=== PATIENT | female | born 1970 | race Asian ===

== ENCOUNTER 2017-03-09 15:18 | Emergency (ER) | payer OTHER ==
--- NOTE | 2017-03-09 15:21 | PDOC ---
History of Present Illness - General Chief Complaint: Pain, Acute Stated Complaint: RIGHT ARM/SHL/NECK PAIN Time Seen by Provider: 03/09/17 15:20 History Source: Patient Exam Limitations: No Limitations - History of Present Illness Initial Comments: CHIEF COMPLAINT: Right shoulder and right arm pain for 5 years, worse since last night HISTORY OF PRESENT ILLNESS: This is a 46-year-old female with a history of 5 years of chronic radicular pain down the right arm. 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 She gets severe cramping in her fingers every night in the right hand. It gets better in the daytime. She wears a brace on her right wrist at night to help prevent the cramping. The patient was having these typical symptoms until last night when she awoke with pain in the right lateral neck radiating to the right shoulder and down the right arm. She states the pain is worse with turning the head, or to touch of the right trapezius region. She continues to have sensitivity and cramping in her hand, similar to what she's had in the past. There is no history of trauma. There is no history of fever. There is no loss of strength in the right arm, but strength is limited due to the pain. REVIEW OF SYSTEMS: GENERAL/CONSTITUTIONAL: No fever or chills. No weakness. No weight change. HEAD, EYES, EARS, NOSE AND THROAT: No change in vision. No ear pain or discharge. No sore throat. CARDIOVASCULAR: No chest pain or shortness of breath. RESPIRATORY: No cough, wheezing, or hemoptysis. GASTROINTESTINAL: No nausea, vomiting, diarrhea or constipation. No rectal bleeding. GENITOURINARY: No dysuria, frequency, or change in urination. MUSCULOSKELETAL: As it of right-sided neck pain in the trapezius region. Positive pain radiating down the right arm. Positive cramping in the right hand , chronic. SKIN AND BREASTS: No rash or easy bruising. NEUROLOGIC: No headache, vertigo, loss of consciousness, or loss of sensation. PSYCHIATRIC: No depression or anxiety. ENDOCRINE: No increased thirst. No abnormal weight change. HEMATOLOGIC/LYMPHATIC: No anemia, easy bleeding, or history of blood clots. ALLERGIC/IMMUNOLOGIC: No hives or skin allergy. No latex allergy. Past History - Past Medical History Allergies/Adverse Reactions: Allergies Allergy/AdvReac Type Severity Reaction Status Date / Time No Known Allergies Allergy Verified 03/09/17 15:19 Home Medications: Ambulatory Orders Nabumetone [Relafen -] 500 mg PO BID PRN #20 tablet 03/09/17 Other medical history: peripartum hemorrhage compl by massive transfusion and right arm nerve injr *Physical Exam - Physical Exam Comments: 03/09/17 16:22 GENERAL: The patient is awake, alert, and fully oriented, in no acute distress. HEAD: Normal with no signs of trauma. EYES: Pupils equal, round and reactive to light, extraocular movements intact, sclera anicteric, conjunctiva clear. ENT: Ears normal, nares patent, oropharynx clear without exudates. Moist mucous membranes. NECK: No cervical spine point tenderness. Positive right trapezius muscle spasm and tenderness. Positive increased pain with rotation and flexion of the neck. Positive increased neck pain with elevation of the right arm and reaching across to the left shoulder. LUNGS: Breath sounds equal, clear to auscultation bilaterally. No wheezes, and no crackles. HEART: Regular rate and rhythm, normal S1 and S2 without murmur, rub or gallop. ABDOMEN: Soft, nontender, normoactive bowel sounds. No guarding, no rebound. No masses. EXTREMITIES: Normal range of motion, no edema. No clubbing or cyanosis. No cords, erythema, or tenderness. Normal range of motion in the right hand. NEUROLOGICAL: Cranial nerves grossly intact. Normal speech, normal gait. Right arm with normal sensation. Strength appears good, but is somewhat limited due to pain in the right shoulder and neck region when testing strength. PSYCH: Normal mood, normal affect. SKIN: Warm, Dry, normal turgor, no rashes or lesions noted. 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 Patient has frequent daily nocturnal cramping in her right hand. Today she awoke with right neck trapezius muscle spasm and pain radiating down the right arm. On examination she has clear trapezius muscle spasm and increased pain with range of motion of the neck. Motor and sensory testing of the right arm appears intact. Findings are consistent with torticollis in the right trapezius muscle with spasm. Patient prescribed nabumetone and advised to do physical therapy exercises. Referral to neurology has been given. *DC/Admit/Observation/Transfer Diagnosis at time of Disposition: Trapezius muscle spasm - Discharge Dispostion Disposition: HOME Condition at time of disposition: Stable Admit: No - Prescriptions Prescriptions: Nabumetone [Relafen -] 500 mg PO BID PRN #20 tablet PRN Reason: shoulder and neck pain - Referrals Referrals: Lucía Molina MD [Non Staff, Medical] - 2 Days - Patient Instructions Printed Discharge Instructions: DI for Cervical Radiculopathy Additional Instructions: Today you were evaluated for right-sided neck pain radiating down the right arm. Your diagnosis is cervical radiculopathy. This basically means muscle spasm in the neck with a pinched nerve causing pain down the arm. Take nabumetone 500 mg twice a day with food to help relieve the pain. Exercise by doing the physical therapy exercises that you were shown in the emergency room. Follow-up with Dr. Lucía Molina neurologist, by calling her office on Saturday to schedule an appointment. Return to the emergency room for any severe or progressive symptoms.
[2017-03-09 15:22] VITALS: BP 100/68; PULSE 88; TEMP 98.8; BMI 18.6
== END 2017-03-09 16:19 | disposition home or self-care (01) ==
LOC: FER 15:18
DX: M54.12 Radiculopathy, cervical region (principal); M79.601 Pain in right arm
CPT/HCPCS: 99282-25

== ENCOUNTER 2017-06-23 17:08 | Emergency (ER) | payer OTHER ==
[2017-06-23 17:12] VITALS: TEMP 97.6; BMI 20.3
[2017-06-23] MEDS ORDERED: ACETAMINOPHEN 325 MG TABLET (FP) PO ONE (17:29)
[2017-06-23] MEDS ORDERED: SODIUM CHLORIDE 1,000 ML IV STA (17:29)
[2017-06-23] MEDS ORDERED: ACETAMINOPHEN 325 MG TABLET (FP) ONE (17:37)
--- NOTE | 2017-06-23 17:42 | PDOC ---
History of Present Illness - General History Source: Patient Exam Limitations: No Limitations <Horacio Qiu - Last Filed: 06/23/17 19:04> - General History Source: Patient, Family Exam Limitations: No Limitations - History of Present Illness Initial Comments: 06/23/17 18:39 The patient is a 46 year old female patient, with significant past medical history of Carpal Tunnel syndrome, who presents to the emergency room via EMS, accompanied by and friend, complaining of two syncopal episodes just prior to arrival. The patient reports she was at a birthday republic[employer] when she began experiencing abdominal cramps and had to sit down. Upon sitting down the patient reportedly syncopized and convulsed for approx. 20-30 seconds per the patient's friend. The patient reports then going to the restroom and experiencing nonbloody diarrhea. The patient reports a second syncopal episode after using the restroom where she states she felt weak and had to sit down in a chair. The patient denies hitting her head. She denies recent fevers or chills. She denies recent nausea or vomit. She denies recent dysuria, frequency, urgency or hematuria. She denies recent chest pain or shortness of breath. Allergies: NKA Past surgical history: Hysterectomy. Primary Care Physician: Dr. Mcdonald <Maximino Bobby - Last Filed: 06/23/17 19:26> - General Chief Complaint: Syncope/Near Syncope Stated Complaint: SYNCOPE,DIARRHEA S/P ABDOMINAL PAIN Time Seen by Provider: 06/23/17 17:23 Past History - Past Medical History GI Disorders: Yes (HEPATITIS B) Other medical history: FAINTING,CARPAL TUNNEL SYNDROME, - Surgical History Abdominal Surgery: Yes - Suicide/Smoking/Psychosocial Hx Smoking History: Never smoked Have you smoked in the past 12 months: No Information on smoking cessation initiated: No Hx Alcohol Use: No Drug/Substance Use Hx: No Substance Use Type: None <Horacio Qiu - Last Filed: 06/23/17 19:04> <Maximino Bobby - Last Filed: 06/23/17 19:26> - Past Medical History Allergies/Adverse Reactions: Allergies Allergy/AdvReac Type Severity Reaction Status Date / Time No Known Allergies Allergy Verified 06/23/17 17:09 Home Medications: Ambulatory Orders NK [No Known Home Medication] 06/23/17 Review of Systems - Review of Systems Comments:: 06/23/17 18:41 GENERAL/CONSTITUTIONAL: No fever or chills. HEAD, EYES, EARS, NOSE AND THROAT: No change in vision. No ear pain or discharge. No sore throat. CARDIOVASCULAR: No chest pain or shortness of breath. RESPIRATORY: No cough, wheezing, or hemoptysis. GASTROINTESTINAL: +Diarrhea. +Abdominal cramps. No nausea, vomiting. GENITOURINARY: No dysuria, frequency, or change in urination. MUSCULOSKELETAL: No joint or muscle swelling or pain. No neck or back pain. SKIN: No rash NEUROLOGIC: +Syncopal episode 2x. No change in strength/sensation. ENDOCRINE: No increased thirst. No abnormal weight change. HEMATOLOGIC/LYMPHATIC: No anemia, easy bleeding, or history of blood clots. ALLERGIC/IMMUNOLOGIC: No hives or skin allergy. <Maximino Bobby - Last Filed: 06/23/17 19:26> *Physical Exam - Vital Signs Last Vital Signs Temp Pulse Resp BP Pulse Ox 97.6 F 74 16 90/53 97 06/23/17 17:09 06/23/17 17:09 06/23/17 17:09 06/23/17 17:39 06/23/17 17:09 <Horacio Qiu - Last Filed: 06/23/17 19:04> - Vital Signs Last Vital Signs Temp Pulse Resp BP Pulse Ox 97.6 F 78 16 88/52 98 06/23/17 17:09 06/23/17 17:46 06/23/17 17:46 06/23/17 17:46 06/23/17 17:46 - Physical Exam Comments: 06/23/17 18:42 GENERAL: Awake, alert, and fully oriented, in no acute distress HEAD: No signs of trauma EYES: PERRLA, EOMI, sclera anicteric, conjunctiva clear ENT: Auricles normal inspection, hearing grossly normal, nares patent, oropharynx clear without exudates. Moist mucosa NECK: Normal ROM, supple, no lymphadenopathy, JVD, or masses LUNGS: Breath sounds equal, clear to auscultation bilaterally. No wheezes, and no crackles HEART: Regular rate and rhythm, normal S1 and S2, no murmurs, rubs or gallops ABDOMEN: Soft, nontender, normoactive bowel sounds. No guarding, no rebound. No masses EXTREMITIES: Normal range of motion, no edema. No clubbing or cyanosis. No cords, erythema, or tenderness NEUROLOGICAL: +5/5 strength upper and lower extremities. +Sensation intact throughout. No pronator drift. Finger to nose normal. Cranial nerves II through XII grossly intact. Normal speech, normal gait SKIN: Warm, Dry, normal turgor, no rashes or lesions noted. <Maximino Bobby - Last Filed: 06/23/17 19:26> Heart Score/ECG Review #1 ECG reviewed & interpreted by me at: 17:45 06/23/17 18:22 NSR 73, no std/arnoldo, normal axis, normal intervals, QTC 445 msec, no HOCM, no WPW , no brugada <Horacio Qiu - Last Filed: 06/23/17 19:04> ED Treatment Course - LABORATORY CBC & Chemistry Diagram: 06/23/17 17:30 06/23/17 17:30 - Medications Given in the ED: ED Medications Discontinued Medications Generic Name Dose Route Start Last Admin Trade Name Freq PRN Reason Stop Dose Admin Acetaminophen 650 mg 06/23/17 17:29 06/23/17 17:39 Tylenol - PO 06/23/17 17:30 Not Given ONCE ONE <Horacio Qiu - Last Filed: 06/23/17 19:04> - LABORATORY CBC & Chemistry Diagram: 06/23/17 17:30 06/23/17 17:30 - ADDITIONAL ORDERS Additional order review: Laboratory Results 06/23/17 06/23/17 17:30 17:30 Sodium 136 Potassium 3.3 L Chloride 103 Carbon Dioxide 27 Anion Gap 6 L BUN 21 H Creatinine 0.9 Creat Clearance w eGFR > 60 Random Glucose 105 Calcium 8.6 Magnesium 2.1 Total Bilirubin 0.7 AST 21 ALT 15 Alkaline Phosphatase 54 Troponin I < 0.03 L Total Protein 6.5 Albumin 4.2 06/23/17 17:30 RBC 4.03 MCV 90.9 MCHC 35.0 RDW 11.8 MPV 7.9 Neutrophils % 72.7 Lymphocytes % 20.6 Monocytes % 4.6 Eosinophils % 1.8 Basophils % 0.3 - Medications Given in the ED: ED Medications Discontinued Medications Generic Name Dose Route Start Last Admin Trade Name Freq PRN Reason Stop Dose Admin Acetaminophen 650 mg 06/23/17 17:29 06/23/17 17:39 Tylenol - PO 06/23/17 17:30 Not Given ONCE ONE Sodium Chloride 1,000 mls @ 1,000 mls/hr 06/23/17 17:29 06/23/17 17:39 Normal Saline - IV 06/23/17 18:28 1,000 mls/hr ASDIR STA Administration <Maximino Bobby - Last Filed: 06/23/17 19:26> Medical Decision Making - Medical Decision Making 06/23/17 18:20 A portion of this note was documented by scribe services under my direction. I have reviewed the details of the note, within reason, and agree with the documentation with the following case summary and management plan written by me. Patient treated in the ED. Nursing notes are reviewed and incorporated into the medical decision-making. Vital signs reviewed. Vital Signs Temp Pulse Resp BP Pulse Ox 97.6 F 78 16 88/52 98 06/23/17 17:09 06/23/17 17:46 06/23/17 17:46 06/23/17 17:46 06/23/17 17:46 46-year-old female with past medical history right hand carpal tunnel, hysterectomy resents to the emerrgency department for syncope 2. Patient reports that she was in her usual state of health. She was at a birthday republic[employer] when she felt severe abdominal cramping. Patient started not to feel well. Cramping and caused her to feel lightheaded and the patient syncopized which was witnessed. No head trauma. There is some questionable shaking but the patient returned to baseline immediately. No tongue biting or foaming of the mouth. Patient again felt unwell and had a second episode with the abdominal cramping and patient proceeded to have diarrhea. Patient subsequently woke up and returned back to baseline. No chest pain or short of breath. I suspect the symptoms were likely secondary to vasovagal syncope. EKG is reassuring. I suspect the cramping and caused her to faint. We'll obtain labs and give IV fluids. We'll observe the patient and if the symptoms are resolved and workup is unremarkable, we'll have the patient discharged. 06/23/17 19:05 CBC, BMP 06/23/17 17:30 06/23/17 17:30 CMP Sodium 136 mmol/L (136-145) 06/23/17 17:30 Potassium 3.3 mmol/L (3.5-5.1) L 06/23/17 17:30 Chloride 103 mmol/L (98-107) 06/23/17 17:30 Carbon Dioxide 27 mmol/L (22-28) 06/23/17 17:30 Anion Gap 6 (8-16) L 06/23/17 17:30 BUN 21 mg/dl (7-18) H 06/23/17 17:30 Creatinine 0.9 mg/dl (0.6-1.3) 06/23/17 17:30 Creat Clearance w eGFR > 60 (>60) 06/23/17 17:30 Random Glucose 105 mg/dl (74-106) 06/23/17 17:30 Calcium 8.6 mg/dl (8.4-10.2) 06/23/17 17:30 Magnesium 2.1 mg/dL (1.8-2.4) 06/23/17 17:30 Total Bilirubin 0.7 mg/dl (0.2-1.0) 06/23/17 17:30 AST 21 U/L (10-42) 06/23/17 17:30 ALT 15 U/L (10-40) 06/23/17 17:30 Alkaline Phosphatase 54 U/L (32-92) 06/23/17 17:30 Troponin I < 0.03 ng/ml (0.03-0.50) L 06/23/17 17:30 Total Protein 6.5 g/dl (6.4-8.3) 06/23/17 17:30 Albumin 4.2 g/dl (3.5-5.0) 06/23/17 17:30 Pt reports feeling well. Pt ambulatory and wishes to go home. Return precautions given. I discussed the physical exam findings, ancillary test results and final diagnoses with the patient. I answered all of the patient's questions. The patient was satisfied with the care received and felt comfortable with the discharge plan and treatment plan. The patient will call their primary care physician within 24 hours to arrange follow-up and will return to the Emergency Department with any new, persistant or worsening symptoms. <Horacio Qiu - Last Filed: 06/23/17 19:04> *DC/Admit/Observation/Transfer - Discharge Dispostion Admit: No <Horacio Qiu - Last Filed: 06/23/17 19:04> - Attestations Scribe Attestion: 06/23/17 18:43 Documentation prepared by Maximino Bobby, acting as medical malpractice paralegal for Horacio Qiu MD. <Maximino Bobby - Last Filed: 06/23/17 19:26> Diagnosis at time of Disposition: Syncope Qualifiers: Syncope type: vasovagal syncope Qualified Code(s): R55 - Syncope and collapse - Discharge Dispostion Disposition: HOME Condition at time of disposition: Fair - Patient Instructions Printed Discharge Instructions: DI for Syncope in Adults (Fainting) Additional Instructions: Please drink plenty of fluids and rest. Follow up with your doctor.
[2017-06-23 17:54] LABS: BASOPHIL 0.3 % (0-2.0); EOSINOPHIL 1.8 % (0-4.5); MCH 31.8 pg (25.7-33.7); MEAN CELL VOLUME 90.9 fl (80-96); MEAN PLT VOLUME 7.9 fl (7.5-11.1); NEUTROPHILS 72.7 % (42.8-82.8); PLATELET COUNT 155 K/MM3 (134-434); RDW 11.8 % (11.6-15.6); WHITE BLOOD COUNT 6.5 K/mm3 (4.0-10.8)
[2017-06-23 18:03] LABS: ALBUMIN 4.2 g/dl (3.5-5.0); ALK PHOS 54 U/L (32-92); ANION GAP 6 (8-16); BILIRUBIN,TOTAL 0.7 mg/dl (0.2-1.0); CALCIUM 8.6 mg/dl (8.4-10.2); CO2 27 mmol/L (22-28); CREATININE 0.9 mg/dl (0.6-1.3); GLUCOSE,RANDOM 105 mg/dl (74-106); MAGNESIUM 2.1 mg/dL (1.8-2.4); SGOT/AST 21 U/L (10-42); SGPT/ALT 15 U/L (10-40); TOT PROT 6.5 g/dl (6.4-8.3)
[2017-06-23 18:57] VITALS: BP 92/48; PULSE 98
--- NOTE | 2017-06-25 20:45 | EKG ---
Test Reason : Blood Pressure : / mmHG Vent. Rate : 073 BPM Atrial Rate : 073 BPM P-R Int : 146 ms QRS Dur : 084 ms QT Int : 404 ms P-R-T Axes : 076 007 052 degrees QTc Int : 445 ms NORMAL SINUS RHYTHM NORMAL ECG NO PREVIOUS ECGS AVAILABLE NO CLINICAL INFORMATION IS AVAILABLE REPEAT EKG IF CLINICALLY INDICATED Confirmed by LUTHER BERRY MD ([id number]) on 06/25/2017 8:45:32 PM Referred By: SLAVA Confirmed By:LUTHER BERRY MD
== END 2017-06-23 19:13 | disposition home or self-care (01) ==
LOC: FER 17:08
PROC: 3E0337Z Introduction of Electrolytic and Water Balance Substance into Peripheral Vein, Percutaneous Approach (ICD-10-PCS; principal; 2017-06-23)
DX: R55 Syncope and collapse (principal)
CPT/HCPCS: 36415; 80053; 83735; 84484; 85025; 93005; 99283-25

== ENCOUNTER 2018-10-01 14:19 | Emergency (ER) | payer OTHER ==
--- NOTE | 2018-10-01 14:23 | PDOC ---
History of Present Illness <Gia Britt - Last Filed: 10/01/18 15:53> - General History Source: Patient Exam Limitations: No Limitations - History of Present Illness Initial Comments: 48 y/o female presenting to [facility] complaining of pain and swelling to right thumb after accidentally closing the digit in her car door yesterday. Reports the pain worsened acutely this morning. Became concerned when the swelling continued. Able to bend the digit. Denies numbness or tingling. Pt is right hand dominant. <Juan A Patrick - Last Filed: 10/01/18 16:25> - General Chief Complaint: Injury Stated Complaint: RT THUMB CRUSH IN CAR DOOR Time Seen by Provider: 10/01/18 14:23 Past History <Gia Britt - Last Filed: 10/01/18 15:53> - Past Medical History GI Disorders: Yes (HEPATITIS B) - Surgical History Abdominal Surgery: Yes - Suicide/Smoking/Psychosocial Hx Smoking History: Never smoked Have you smoked in the past 12 months: No Hx Alcohol Use: No Drug/Substance Use Hx: No Substance Use Type: None <Juan A Patrick - Last Filed: 10/01/18 16:25> - Past Medical History Allergies/Adverse Reactions: Allergies Allergy/AdvReac Type Severity Reaction Status Date / Time No Known Allergies Allergy Verified 10/01/18 14:19 Home Medications: Ambulatory Orders NK [No Known Home Medication] 06/23/17 Review of Systems - Review of Systems Able to Perform ROS?: Yes Comments:: In addition to that documented in the HPI above, the additional ROS was obtained : Constitutional: Denies fevers or chills or recent illness CV: Denies chest pain Resp: Denies SOB Trauma: per HPI MSK: Per HPI <Juan A Patrick - Last Filed: 10/01/18 16:25> *Physical Exam - Vital Signs Last Vital Signs Temp Pulse Resp BP Pulse Ox 98 F 74 20 107/64 100 10/01/18 14:19 10/01/18 14:19 10/01/18 14:19 10/01/18 14:19 10/01/18 14:19 <Gia Britt - Last Filed: 10/01/18 15:53> - Physical Exam Comments: Constitutional: Well-developed, well-nourished female in no acute distress or obvious discomfort. Found sitting upright on edge of hospital bed. Alert and oriented x4. Answered all questions appropriately and completely. Speech was non -labored, non-pressured. Head: Normocephalic. No obvious external signs of trauma. Eyes: Sclerae white. EARS: Hearing grossly intact. NOSE: No nasal discharge. Neck: Supple, trachea is midline. Cardiovascular: Regular rate and regular rhythm. No murmur, rubs, clicks, or gallops. Peripheral pulses: Radial pulses full. Respiratory: Breathing unlabored. Equal chest rise and fall. Clear to auscultation bilaterally. No stridor, no wheezing, no rhonchi. Skin/MSK: Right thumb is swollen but not angulated. Subungual hematoma to proximal 1/5th. Able to flex, extend, and oppose thumb but reproduces pain. No skin breakdown or bleeding. Psych: Affect: appropriate. Mood: normal. <Juan A Patrick - Last Filed: 10/01/18 16:25> Moderate Sedation - Procedure Monitoring Vital Signs: Procedure Monitoring Vital Signs Temperature 98 F 10/01/18 14:19 Pulse Rate 74 10/01/18 14:19 Respiratory Rate 20 10/01/18 14:19 Blood Pressure 107/64 10/01/18 14:19 O2 Sat by Pulse Oximetry (%) 100 10/01/18 14:19 <Gia Britt - Last Filed: 10/01/18 15:53> Medical Decision Making - Medical Decision Making *Reviewed vital signs, nursing notes, and prior visit documentation (if available). 48 y/o female with swollen and painful thumb after accidental forceful encounter with car door. Low suspicion for fracture or dislocation, but will obtain plain film to further evaluate. Pt declined analgesics. Plain film of thumb showed possible small nondisplaced fracture to distal metacarpal per ED wet read. Formal radiology report indicates no fracture. Discussed with patient. Placed thumb in splint in position of comfort and referred to Dr. Coles for hand outpatient follow up as this is her dominant hand. <Juan A Patrick - Last Filed: 10/01/18 16:25> *DC/Admit/Observation/Transfer <Gia Britt - Last Filed: 10/01/18 15:53> <Juan A Patrick - Last Filed: 10/01/18 16:25> Diagnosis at time of Disposition: Subungual hematoma, Caught, crushed, jammed, or pinched between stationary objects, initial encounter Thumb injury Qualifiers: Encounter type: initial encounter Laterality: right Qualified Code(s): S69.91XA - Unspecified injury of right wrist, hand and finger(s), initial encounter - Discharge Dispostion Disposition: HOME Condition at time of disposition: Improved - Referrals Referrals: Kyle Coles MD [Staff Physician] - - Patient Instructions Printed Discharge Instructions: Finger Fracture, DI for Subungual Hematoma Additional Instructions: wear finger splint on your thumb until you follow up with a hand specialist. you can follow up with dr coles, a hand surgeon. call to schedule within one week. you can take ibuprofen 600 mg every 8 hrs as needed for pain. ice and elevate to reduce your pain and swelling. return for any problems or concerns.
[2018-10-01 14:27] VITALS: BP 107/64; PULSE 74; TEMP 98; BMI 19.5
--- NOTE | 2018-10-01 14:33 | PDOC ---
Attending Attestation - Resident Resident Name: BishopJuan A - ED Attending Attestation I have performed the following: I have examined & evaluated the patient, The case was reviewed & discussed with the resident, I agree w/resident's findings & plan, Exceptions are as noted - HPI HPI: 10/01/18 14:31 48 yo F s/p thumb injury to right thumb. slammed in door yesterday. did not take anything for pain prior to arrival. doesnot currently want anything for pain. here today for xray. pain mild worse with movement. no numbness or tingling no other associated injuries. 10/01/18 14:59 - Physicial Exam PE: 10/01/18 15:00 awake alert right hand with thumg subungal hematoma to 1/3 thumb. pain to palpation at ip joint from. distally nv intact. pain with flexion at IP joint 10/01/18 15:04 - Medical Decision Making 10/01/18 14:32 plan xray r/o fx. deferred pain control ice elevated. 10/01/18 15:00 10/01/18 15:14 xray thumb with lucency on lateral at distal part of proximal phalynx. given finger splint and followup with dr Coles.
== END 2018-10-01 15:56 | disposition home or self-care (01) ==
LOC: FER 14:19
PROC: 2W3GX1Z Immobilization of Right Thumb using Splint (ICD-10-PCS; principal; 2018-10-01)
DX: S69.91XA Unspecified injury of right wrist, hand and finger(s), initial encounter (principal); S61.001A Unspecified open wound of right thumb without damage to nail, initial encounter; S60.011A Contusion of right thumb without damage to nail, initial encounter; W23.1XXA Caught, crushed, jammed, or pinched between stationary objects, initial encounter; Y93.89 Activity, other specified; Y92.89 Other specified places as the place of occurrence of the external cause; B19.10 Unspecified viral hepatitis B without hepatic coma
CPT/HCPCS: 73140-TC-RT-FY; 99282-25

== ENCOUNTER 2019-04-20 10:17 | Emergency (ER) | payer OTHER ==
[2019-04-20 10:26] VITALS: BP 102/62; PULSE 97; TEMP 97.5; BMI 18.6
--- NOTE | 2019-04-20 10:43 | PDOC ---
History of Present Illness - General Chief Complaint: Cold Symptoms Stated Complaint: fever,sore throat and body aches Time Seen by Provider: 04/20/19 10:22 History Source: Patient Exam Limitations: No Limitations - History of Present Illness Initial Comments: 04/20/19 10:38 48y F no pmhx sent by urgent care for evaluation of fever. Per patient, she had fever, body aches, sore throat, mild non productive cough since saturday. Denies any cp, love, n/v, diarrhea, melena, bpr, dysuria, lighheadedness, ear pain, recent travel or known sick contacts. Pt endorses mild lower abd discomfort but not pain. she notes she was drinking water at home but not eating as much as usual due to not feeling well. pt had rapid strep that was neg at urgent care pt was at urgent care and they noticed her BP was low at 86/55, T of 101.7, HR 116. She was given gatorade to drink and tylenol for fever her vital s here noted for resolution of tachycardia and fever. Constitutional - +Fever, no reported Chills, HEENT: +sore throat no reported vision changes, Respiratory: +cough no reported sob, hemoptysis Cardiac: no reported chest pain, palpitations, light headedness, leg swelling Abd/GI: +lower abd discomfot no reported nausea, vomiting, blood per rectum, melena, diarrhea : no reported dysuria, frequency, discharge Musculskelatal - no reported back pain, joint swelling skin - no reported bruising, erythema, rash neurological: no reported headache, numbness, focal weakness, tingling, ataxia, hematologic: no reported easy bruising, easy bleeding GENERAL: The patient is awake, alert, and fully oriented, Nontoxic - in no acute distress. HEAD: Normocephalic, atraumatic. EYES: extraocular movements intact, sclera anicteric, conjunctiva clear. ENT: Normal voice, Moist mucous membranes. NECK: Normal range of motion, supple LUNGS: Breath sounds equal, clear to auscultation bilaterally. No wheezes, no rhonchi, no rales. HEART: Regular rate and rhythm, normal S1 and S2 without murmur, rub or gallop. ABDOMEN: Soft, nontender, No guarding, no rebound. No CVA tenderness EXTREMITIES: Normal range of motion, no edema. NEUROLOGICAL: No facial assymetry, Normal speech, PSYCH: Normal mood, normal affect. SKIN: Warm, Dry, normal turgor, suspect viral syndrome pt otherwise well appearing pt notse her bp is always low - as told to her by [facility] in the past. will ck UA for her lower abd pain to r/o uti no abd ttp to suggest appendicits/diverticulitis/cholecystitis Past History - Past Medical History Allergies/Adverse Reactions: Allergies Allergy/AdvReac Type Severity Reaction Status Date / Time No Known Allergies Allergy Verified 04/20/19 10:19 Home Medications: Ambulatory Orders NK [No Known Home Medication] 06/23/17 CVA: No COPD: No GI Disorders: Yes (HEPATITIS B) - Surgical History Abdominal Surgery: Yes - Immunization History Immunization Up to Date: Yes - Suicide/Smoking/Psychosocial Hx Smoking History: Never smoked Have you smoked in the past 12 months: No Hx Alcohol Use: No Drug/Substance Use Hx: No Substance Use Type: None *Physical Exam - Vital Signs Last Vital Signs Temp Pulse Resp BP Pulse Ox 97.5 F L 97 H 18 102/62 97 04/20/19 10:19 04/20/19 10:19 04/20/19 10:19 04/20/19 10:19 04/20/19 10:19 *DC/Admit/Observation/Transfer Diagnosis at time of Disposition: Viral syndrome - Discharge Dispostion Disposition: HOME Condition at time of disposition: Improved Decision to Admit order: No - Referrals Referrals: Saran Luo [Other] - Patient Instructions Printed Discharge Instructions: DI for Viral Upper Respiratory Infection -- Adult Additional Instructions: Return to the emergency department immediately with ANY new, persistent or worsening symptoms including worsening headache, difficulty breathing, abdominal pain, or othe rocncerns. Make sure you are eating/drinking. Take tylenol for your fever/body aches You MUST call and follow up with your doctor in 3-4 days for further evaluation of your symptoms. Results were discussed with you. Please make sure your doctor reviews the results of your emergency evaluation. Your Emergency Department visit is not complete without a follow up with your doctor. Print Language: DUTCH - Post Discharge Activity
[2019-04-20 11:45] LABS: EPITHELIAL CELLS FEW /hpf
== END 2019-04-20 12:05 | disposition home or self-care (01) ==
LOC: FER 10:17
DX: B34.9 Viral infection, unspecified (principal); B19.10 Unspecified viral hepatitis B without hepatic coma
CPT/HCPCS: 81003; 81015; 99282-25

== ENCOUNTER 2020-05-25 13:57 | Emergency (ER) | payer OTHER ==
[2020-05-25 14:09] VITALS: BP 97/72; PULSE 100; TEMP 98.6; BMI 20.3
--- NOTE | 2020-05-25 14:33 | PDOC ---
History of Present Illness - General Chief Complaint: Laceration Stated Complaint: CUT TO LEFT INDEX FINGER YESTERDAY Time Seen by Provider: 05/25/20 14:11 History Source: Patient - History of Present Illness Initial Comments: 05/25/20 14:30 49-year-old female no past medical history here today status post laceration 24 hours ago to her left index finger patient states she was cutting fish subsequently slipped and cut the dorsum of her left index finger just before the nailbed. States she placed a Band-Aid at that time washed it with Betadine and today she said the pain became unbearable it was still had persistent bleeding so she was concerned she may need stitches no other current complaints no fevers no chills Past History - Medical History Allergies/Adverse Reactions: Allergies Allergy/AdvReac Type Severity Reaction Status Date / Time No Known Allergies Allergy Verified 05/25/20 14:00 Home Medications: Ambulatory Orders Sulfamethoxazole/Trimethoprim [Bactrim Ds Tablet] 1 each PO BID #10 tablet 05/25/20 CVA: No COPD: No GI Disorders: Yes (HEPATITIS B) Other medical history: CARPAL TUNNEL - Surgical History Abdominal Surgery: Yes - Reproductive History Is Patient Now?: No - Immunization History Immunization Up to Date: Yes - Psycho-Social/Smoking History Smoking History: Never smoked Have you smoked in the past 12 months: No Information on smoking cessation initiated: No - Substance Abuse Hx (Audit-C & DAST Scrn) How often the patient has a drink containing alcohol: Never Score: In Men: 4 or > Positive; In Women: 3 or > Positive: 0 Screen Result (Pos requires Nsg. Audit-10AR): Negative Review of Systems - Review of Systems Constitutional: No: Chills, Fever HEENTM: No: Eye Pain Respiratory: No: Cough, Shortness of Breath Cardiac (ROS): No: Chest Pain Musculoskeletal: Yes: Joint Pain Neurological: No: Headache, Numbness, Paresthesia Psychiatric: No: Stressors All Other Systems: Reviewed and Negative *Physical Exam - Vital Signs Last Vital Signs Temp Pulse Resp BP Pulse Ox 98.6 F 100 H 16 97/72 100 05/25/20 13:59 05/25/20 13:59 05/25/20 13:59 05/25/20 13:59 05/25/20 13:59 - Physical Exam 05/25/20 14:31 Awake alert no acute distress lungs are clear bilaterally heart is regular without murmurs rubs or gallops examination of the left hand demonstrates a small half centimeter laceration proximal to the index finger nail bed distal to the DIP joint. Minimal active bleeding wound was irrigated and cleaned full range of motion at the PIP and DIP Medical Decision Making - Medical Decision Making 05/25/20 14:32 , 49-year-old female status post laceration to left index finger, the wound is 24 hours old therefore no suturing is possible. Patient has significant tenderness and minimal swelling to the distal aspect of her finger concerns for superimposed infection as she was cleaning fish will start her on bactrim given bacitracin and nonstick dressing and told to follow-up as needed 05/25/20 14:47 Discharge - Discharge Information Problems reviewed: Yes Clinical Impression/Diagnosis: Laceration Condition: Improved Disposition: HOME - Admission No - Additional Discharge Information Prescriptions: Sulfamethoxazole/Trimethoprim [Bactrim Ds Tablet] 1 each PO BID #10 tablet - Follow up/Referral - Patient Discharge Instructions Patient Printed Discharge Instructions: DI for Wound Infection, DI for Avulsion Laceration (Not Requiring Sutures) Additional Instructions: We cannot place stitches in your laceration as it was over 24 hours old. You can take bactrim (antiobiotic) 1 tablet twice daily x 5 days to prevent further infection. You should soak your hand starting tomorrow in warm soapy water twice daily then apply any triple antibiotic cream such as bacitracin or Neosporin twice daily use a nonstick dressing return for any worsening redness swelling or any concerns - Post Discharge Activity
[2020-05-25] MEDS ORDERED: IBUPROFEN 600 MG TABLET (FP) PO ONE ×2 (14:48→14:52)
== END 2020-05-25 14:54 | disposition home or self-care (01) ==
LOC: FER 13:57
DX: S61.211A Laceration without foreign body of left index finger without damage to nail, initial encounter (principal)
CPT/HCPCS: 99283-25

== ENCOUNTER 2021-11-11 18:53 | Emergency (ER) | payer OTHER ==
[2021-11-11 19:00] VITALS: BP 108/53; PULSE 93; TEMP 98.9; BMI 19.3
[2021-11-11] MEDS ORDERED: TETRACAINE 0.5% OPHTH SOLN 2 ML BOTTLE ONE (19:14)
[2021-11-11] MEDS ORDERED: FLUORESCEIN NA 1 EA STRIP ONE (19:14)
[2021-11-11] MEDS ORDERED: TOBRA 0.3%/DEXAMETH 0.1% OPHTHALMIC SUSP 2.5 ML BTL OD STA (19:22)
[2021-11-11] MEDS ORDERED: TOBRA 0.3%/DEXAMETH 0.1% OPHTHALMIC SUSP 2.5 ML BTL ONE (19:25)
== END 2021-11-11 19:36 | disposition home or self-care (01) ==
LOC: FER 18:53
DX: H10.9 Unspecified conjunctivitis (principal)
CPT/HCPCS: 99283-25

== ENCOUNTER → 2022-05-30 | Emergency (ER) | payer OTHER | END | disposition left against medical advice (07) | LOC: FER 22:43 | DX: R51.9 Headache, unspecified (principal) | CPT/HCPCS: 99281-25 ==